=== PATIENT | female | born 1935 | race Caucasian/White ===

== ENCOUNTER 2017-05-19 18:06 | Inpatient (IN) | payer OTHER ==
[~2017-05-19] VITALS: Ht 177.8 cm; Wt 73.4 kg
[~2017-05-19 18:06] MED LIST: AMLO-147 PO; CLOP75TA27 PO; GABA300C16 PO; HYDR-906 PO; LANT3I SC; LISI10TA2 PO; METO-407 PO; MTF1000T PO; TRAM50TA2 PO
[2017-05-19 19:24] LABS: BASOPHILS % 0.2 % (0.0-2.0); EOSINOPHILS # 0.1 10^3/ul (0.0-0.5); EOSINOPHILS % 0.4 % (0.0-7.0); HEMATOCRIT 45.7 % (37.0-47.0); HEMOGLOBIN 15.1 g/dl (12.0-16.0); LYMPHOCYTES # 0.8 10^3/ul (0.8-2.9); LYMPHOCYTES % 5.9 % (15.0-51.0); MEAN CORPUSCULAR HEMOGLOBIN 27.8 pg (29.0-33.0); MEAN CORPUSCULAR VOLUME 84.2 fl (82.0-101.0); MEAN PLATELET VOLUME 10.8 fl (7.4-10.4); MONOCYTE # 0.8 10^3/ul (0.3-0.9); MONOCYTES % 5.4 % (0.0-11.0); NEUTROPHIL # 12.2 10^3/ul (1.6-7.5); NEUTROPHILS % 87.5 % (39.0-77.0); PLATELET COUNT 218 10^3/UL (140-415); RED BLOOD COUNT 5.43 10^6/ul (4.20-5.40); RED CELL DISTRIBUTION WIDTH 13.3 % (11.5-14.5)
[2017-05-19] MEDS ORDERED: SOD CHLORIDE 0.9% 1,000 ML IV ONE ×2 (19:30→21:30)
[2017-05-19 19:57] LABS: ALANINE AMINOTRANSFERASE 32 IU/L (13-69); ALBUMIN 4.1 g/dl (3.3-4.9); ALBUMIN/GLOBULIN RATIO 1.17; ALKALINE PHOSPHATASE 75 IU/L (42-121); ANION GAP 18 (8-16); ASPARTATE AMINO TRANSFERASE 20 IU/L (15-46); BILIRUBIN,INDIRECT 0.7 mg/dl (0-1.1); BILIRUBIN,TOTAL 0.7 mg/dl (0.2-1.3); BLOOD UREA NITROGEN 30 mg/dl (7-20); CALCIUM 9.8 mg/dl (8.4-10.2); CARBON DIOXIDE 24 mmol/L (21-31); CHLORIDE 104 mmol/L (97-110); CREATININE 0.76 mg/dl (0.44-1.00); GLUCOSE 235 mg/dl (70-220); POTASSIUM 3.6 mmol/L (3.5-5.1); SODIUM 142 mmol/L (135-144); TOTAL PROTEIN 7.6 g/dl (6.1-8.1)
[2017-05-19 20:11] LABS: TROPONIN-I < 0.012 ng/ml (0.00-0.12)
--- NOTE | 2017-05-19 20:29 | ERD ---
ER Documentation Chief Complaint Chief Complaint gen weakness for a few days. no neuro def, no fevers noted. no trauma HPI 82-year-old woman brought in by EMS from home for generalized weakness 2 days. She states she has not been eating or drinking much, she denies fevers or chills, no vomiting or diarrhea. Specifics are difficult to obtain, patient difficult historian. ROS All systems reviewed and are negative except as per history of present illness. Medications Home Meds Active Scripts Tramadol HCl (Tramadol HCl) 50 Mg Tablet, 50 MG PO Q6 Y for PAIN, #20 TAB Prov:ROSE MARY LINARES MD 04/28/16 Reported Medications Hydrocodone/Acetaminophen ([place] 5-325 Tablet) 1 Each Tablet, 1 EACH PO DAILY Y for PRN, TAB 05/06/16 Lisinopril* (Lisinopril*) 10 Mg Tablet, 10 MG PO BID, #30 TAB 05/06/16 Gabapentin* (Gabapentin*) 300 Mg Capsule, 300 MG PO QHS, #60 CAP 05/06/16 Insulin Glargine* (Lantus*) 100 Unit/Ml Soln, 20 UNIT SC QHS, #1 VIAL 05/06/16 Clopidogrel Bisulfate (Clopidogrel) 75 Mg Tablet, 75 MG PO DAILY, #30 TAB 04/28/16 Metformin* (Glucophage*) 1,000 Mg Tablet, 1000 MG PO DAILY, #30 TAB 04/28/16 Amlodipine Besylate* (Amlodipine Besylate*) 10 Mg Tablet, 10 MG PO DAILY, #30 TAB 04/28/16 Metoprolol Tartrate* (Lopressor*) 100 Mg Tablet, 100 MG PO BID, #60 TAB 04/28/16 Allergies Allergies: Coded Allergies: No Known Allergies (Unverified Allergy, Unknown, 05/06/16) PMhx/Soc Diabetes mellitus, hypertension, dyslipidemia, dementia, previous sections History of Surgery: No Anesthesia Reaction: No Hx Neurological Disorder: No Hx Respiratory Disorders: No Hx Cardiac Disorders: Yes (HTN ) Hx Psychiatric Problems: No Hx Miscellaneous Medical Probl: Yes (DM,UTI) Hx Alcohol Use: No Hx Substance Use: No Hx Tobacco Use: No Smoking Status: Never smoker FmHx Family History: No diabetes Physical Exam Vitals Vital Signs Date Time Temp Pulse Resp B/P Pulse Ox O2 Delivery O2 Flow Rate FiO2 05/19/17 18:13 98.1 70 16 165/73 98 Physical Exam GENERAL: Elderly woman, dehydrated, afebrile HEENT: Dry mucous membranes, pink conjunctiva, no cervical spine tenderness or step-off deformities, no goiter, no jaundice or icterus, extraocular movements intact without pain. No submandibular induration, and no pharyngeal erythema NEURO: Alert and oriented 2, pupils equal round reactive to light, able to answer simple questions follow simple commands, no focal deficits or facial asymmetry CARDIAC: Regular rate and rhythm, no murmurs rubs or gallops LUNGS: Clear bilaterally no wheezing crackles or stridor ABDOMEN: Soft nontender, no guarding, no rigidity, no rebound, no psoas sign no obturator sign. Normoactive bowel sounds SKIN: Warm and dry to touch, no abrasions, contusions, or hematomas, no lacerations, no ecchymosis, no target lesions, and without ulcers EXTREMITIES: No clubbing cyanosis or edema, calves are bilaterally symmetrical, no Homans sign, no popliteal cord sign. Distal pulses equal and bilateral PSYCH: Normal affect without agitation or irritability Result Diagram: 05/19/17182905/19/171829 Results 24 hrs Laboratory Tests Test 05/19/17 18:30 05/19/17 19:45 05/19/17 20:40 White Blood Count 14.010^3/ul Red Blood Count 5.4310^6/ul Hemoglobin 15.1g/dl Hematocrit 45.7% Mean Corpuscular Volume 84.2fl Mean Corpuscular Hemoglobin 27.8pg Mean Corpuscular Hemoglobin Concent 33.0g/dl Red Cell Distribution Width 13.3% Platelet Count 33420^3/UL Mean Platelet Volume 10.8fl Neutrophils % 87.5% Lymphocytes % 5.9% Monocytes % 5.4% Eosinophils % 0.4% Basophils % 0.2% Nucleated Red Blood Cells % 0.0/100WBC Neutrophils # 12.210^3/ul Lymphocytes # 0.810^3/ul Monocytes # 0.810^3/ul Eosinophils # 0.110^3/ul Basophils # 0.010^3/ul Nucleated Red Blood Cells # 0.010^3/ul Sodium Level 142mmol/L Potassium Level 3.6mmol/L Chloride Level 104mmol/L Carbon Dioxide Level 24mmol/L Anion Gap 18 Blood Urea Nitrogen 30mg/dl Creatinine 0.76mg/dl Glucose Level 235mg/dl Calcium Level 9.8mg/dl Total Bilirubin 0.7mg/dl Direct Bilirubin 0.00mg/dl Indirect Bilirubin 0.7mg/dl Aspartate Amino Transf (AST/SGOT) 20IU/L Alanine Aminotransferase (ALT/SGPT) 32IU/L Alkaline Phosphatase 75IU/L Troponin I < 0.012ng/ml Total Protein 7.6g/dl Albumin 4.1g/dl Globulin 3.50g/dl Albumin/Globulin Ratio 1.17 Lipase 143U/L Urine Color YELLOW Urine Clarity CLEAR Urine pH 5.0 Urine Specific [place] 1.019 Urine Ketones NEGATIVEmg/dL Urine Nitrite NEGATIVEmg/dL Urine Bilirubin NEGATIVEmg/dL Urine Urobilinogen NEGATIVEmg/dL Urine Leukocyte Esterase NEGATIVELeu/ul Urine Microscopic RBC 0/HPF Urine Microscopic WBC 1/HPF Urine Bacteria FEW/HPF Urine Mucus FEW/HPF Urine Hemoglobin NEGATIVEmg/dL Urine Glucose 2+mg/dL Urine Total Protein 1+mg/dl Bedside Urine pH (LAB) 5.5 Bedside Urine Protein (LAB) 2+ Bedside Urine Glucose (UA) 0.1% Bedside Urine Ketones (LAB) Negative Bedside Urine Blood Negative Bedside Urine Nitrite (LAB) Negative Bedside Urine Leukocyte Esterase (L Negative Current Medications Medications (Trade) Dose Ordered Sig/Kathy Route PRN Reason Start Time Stop Time Status Last Admin Dose Admin Sodium Chloride 1,000 ml @ 1,000 mls/hr Q1H ONCE IV 05/19/17 19:30 05/19/17 20:29 DC 05/19/17 19:37 Sodium Chloride (NS) 1,000 ml @ 1,000 mls/hr Q1H ONCE IV 05/19/17 21:30 05/19/17 22:29 Procedures/MDM IV line was established patient was placed on measurement advisor rhythm strip revealed a sinus rhythm at about 80 bpm with multiple PVCs. Patient was afebrile I administered 2 L normal saline intravenously for dehydration. EKG performed, read by me revealed a normal sinus rhythm at 85 bpm, normal axis , narrow QRS complex with evidence of left ventricular hypertrophy and multiple PVCs. No concerning ST elevations or depressions noted. CBC was unremarkable, electrolytes revealed dehydration, liver function tests normal, troponin negative, urinalysis negative for infection. Patient's mental status has improved but she continues to have PVCs on monitor which may be contributing to her weakness she will be admitted to telemetry setting, she may require cardiology consultation and echocardiogram. Departure Diagnosis: Primary Impression: Acute weakness Additional Impressions: Dehydration Failure to thrive Failure to thrive age range: in adult Qualified Code: R62.7 - Failure to thrive in adult Cardiac dysrhythmia Arrhythmia type: unspecified cardiac arrhythmia Qualified Code: I49.9 - Cardiac arrhythmia, unspecified cardiac arrhythmia type Condition: YARY Flores MD May 19, 2017 20:29
[2017-05-19 20:42] LABS: URINE BLOOD (Dip) POC Negative (NEGATIVE)
[2017-05-19 20:59] LABS: ADD UMIC YES; UR ASCORBIC ACID NEGATIVE (NEGATIVE); UR BACTERIA FEW /HPF (NONE SEEN); UR BILIRUBIN (Dip) NEGATIVE (NEGATIVE); UR BLOOD (Dip) NEGATIVE (NEGATIVE); UR CLARITY CLEAR (CLEAR); UR COLOR YELLOW (YELLOW); UR GLUCOSE (Dip) 2+ mg/dL (NEGATIVE); UR KETONES (Dip) NEGATIVE (NEGATIVE); UR LEUKOCYTE ESTERASE (Dip) NEGATIVE Leu/ul (NEGATIVE); UR MUCUS FEW /HPF (NONE SEEN); UR NITRITE (Dip) NEGATIVE (NEGATIVE); UR RBC 0 /HPF (0-5); UR SPECIFIC GRAVITY (Dip) 1.019 (1.003-1.030); UR TOTAL PROTEIN (Dip) 1+ mg/dl (NEGATIVE); UR UROBILINOGEN (Dip) NEGATIVE (NEGATIVE)
--- NOTE | 2017-05-19 22:02 | RADRPT ---
PROCEDURE: XR Chest. CLINICAL INDICATION: Shortness of breath. TECHNIQUE: Single frontal view. COMPARISON: 06/10/2014. FINDINGS: The lungs are clear. The heart is mildly enlarged. There is calcification in the aorta consistent with atherosclerosis. There is no pleural effusion or pneumothorax. There is an old nonunited fracture of the distal left clavicle. IMPRESSION: 1. Cardiomegaly and atherosclerosis. 2. 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 3. Otherwise unremarkable chest radiograph. RPTAT: QQ .Sergio Long MD, MD Date Time Electronically viewed and signed by .Sergio Long MD, MD on 05/19/2017 22:02 .R/
[2017-05-20] VITALS (23 sets, daily range): BP systolic 118–168; BP diastolic 43–113; PULSE 59–96; RESP 12–27; TEMP 99; Ht 177.8 cm; Wt 73.4 kg
[2017-05-20] MEDS ORDERED: GLUCOSE GEL 15 GRAM TUBE BUCCAL PRN (03:30)
[2017-05-20] MEDS ORDERED: DEXTROSE 50% 50 ML SYRINGE IV PRN ×2 (03:30)
[2017-05-20] MEDS ORDERED: GLUCAGON 1 MG INJ IM PRN (03:30)
[2017-05-20] MEDS ORDERED: GLUCOSE GEL 15 GRAM TUBE PO PRN ×2 (03:30)
[2017-05-20] MEDS ORDERED: INSULIN ASPART [NOVOLOG] 3 ML PEN SC SCH ×2 (05:00→07:35)
[2017-05-20] MEDS ORDERED: traMADol 50 MG TAB PO PRN (05:30)
[2017-05-20] MEDS ORDERED: ONDANSETRON 4 MG INJ IV PRN (05:30)
[2017-05-20 06:20] LABS: BASOPHILS % 0.3 % (0.0-2.0); EOSINOPHILS # 0.1 10^3/ul (0.0-0.5); EOSINOPHILS % 0.9 % (0.0-7.0); HEMATOCRIT 37.6 % (37.0-47.0); HEMOGLOBIN 12.4 g/dl (12.0-16.0); LYMPHOCYTES # 1.3 10^3/ul (0.8-2.9); LYMPHOCYTES % 13.1 % (15.0-51.0); MEAN CORPUSCULAR HEMOGLOBIN 27.6 pg (29.0-33.0); MEAN CORPUSCULAR VOLUME 83.6 fl (82.0-101.0); MONOCYTE # 0.8 10^3/ul (0.3-0.9); MONOCYTES % 7.6 % (0.0-11.0); NEUTROPHIL # 7.6 10^3/ul (1.6-7.5); NEUTROPHILS % 77.6 % (39.0-77.0); PLATELET COUNT 182 10^3/UL (140-415); RED CELL DISTRIBUTION WIDTH 13.5 % (11.5-14.5); WHITE BLOOD COUNT 9.8 10^3/ul (4.8-10.8)
[2017-05-20 06:53] LABS: ALANINE AMINOTRANSFERASE 33 IU/L (13-69); ALBUMIN 2.8 g/dl (3.3-4.9); ALBUMIN/GLOBULIN RATIO 0.96; ALKALINE PHOSPHATASE 53 IU/L (42-121); ANION GAP 11 (8-16); ASPARTATE AMINO TRANSFERASE 29 IU/L (15-46); BILIRUBIN,INDIRECT 0.7 mg/dl (0-1.1); BILIRUBIN,TOTAL 0.7 mg/dl (0.2-1.3); BLOOD UREA NITROGEN 18 mg/dl (7-20); CALCIUM 8.4 mg/dl (8.4-10.2); CARBON DIOXIDE 24 mmol/L (21-31); CHLORIDE 110 mmol/L (97-110); CHOL/HDL RATIO 2.6 RATIO; CHOLESTEROL 79 mg/dl (100-200); CREATININE 0.61 mg/dl (0.44-1.00); GLUCOSE 126 mg/dl (70-220); HDL CHOLESTEROL 30 mg/dl (33-92); SODIUM 142 mmol/L (135-144); TOTAL PROTEIN 5.7 g/dl (6.1-8.1); TRIGLYCERIDES 88 mg/dl (0-149)
[2017-05-20] MEDS ORDERED: PENDING SANTYL ORDER FOR WOUND CARE XX PRN (07:00)
--- NOTE | 2017-05-20 07:16 | HP ---
Date/Time of Note Date/Time of Note DATE: 05/20/17 TIME: 07:01 Assessment/Plan VTE Prophylaxis VTE Prophylaxis Intervention: SCD's Lines/Catheters IV [facility] Saline Lock Urinary Cath still in place: No Assessment/Plan Assessment/Plan 1. Status post-fall -According to her nurse, patient reported falling down in the bathtub about 2 weeks ago. She does have the bruising in her lower back, buttock and also blistering lesion on the right lower extremity. Due to patient's mental condition, additional information could not be obtained including questions about cardiac symptoms or syncope. Telemetry monitoring shows rate controlled A -fib in the 60s with frequent PVCs and also had aberrancy. -She will continue to be monitored on the telemetry unit -Trend troponin -Obtain carotid Doppler ultrasound -Physical therapy 2. A-fib, rate controlled -Continue Plavix and beta-kandace. No anticoagulation given fall risk 3. Generalized weakness -Physical therapy evaluation 4. Dementia -Continue supportive care 5. Likely history of CAD -Continue home medications including Plavix and beta-kandace 6. Hypertension -Continue antihypertensives adjustment as needed 7. Insulin-dependent Diabetes -Hold metformin. Continue insulin 8. Right lower extremity blistering lesion/cellulitis -Unknown etiology of the blistering lesion, but could be from some type of accidental burn. He does not appear to be from trauma from fall -Wound care consult -Antibiotic HPI/ROS Admit Date/Time Admit Date/Time May 19, 2017 at 21:12 Hx of Present Illness This is an 82-year-old female with a history of hypertension, dyslipidemia, A. fib, probable CAD, dementia who presented to the ER for what ER notes says generalized weakness. Patient appears to have dementia and is a slow when answering questions. On my questioning, she knew that she is in the hospital, but she said "I can not tell you are why I'm here". She seem to have difficulty remembering things. She thought the year was 1987 and did not know who the current [place] president is. According to her nurse however, she told him that she fell down in the past about 2 weeks ago. She does have bruising in her lower back, buttock and that there is a blistering lesion on the right lower extremity. On physical examination, she does have 5 out of 5 strength in both upper and lower extremities with good handgrip. When she came to the ER, initial blood pressure was 165/73. Labs shows a WBC of 14,000 and a glucose of 235. Chest x-ray showed cardiomegaly and old left clavicular fracture. Patient is admitted to ICU as telemetry overflow. On the monitor, it shows that she is in A-fib, rate controlled in the 60s with frequent PVCs and also had aberrancy. PMH/Family/Social Social History Smoking Status: Former smoker Exam/Review of Systems Vital Signs Vitals Vital Signs Date Time Temp Pulse Resp B/P Pulse Ox O2 Delivery O2 Flow Rate FiO2 05/20/17 06:00 79 21 162/87 97 Room Air 05/20/17 05:00 98.1 Intake and Output 05/19/17 05/19/17 05/20/17 14:59 22:59 06:59 Intake Total 2000 ml Balance 2000 ml Exam Exam Constitutional: alert, oriented, well developed Head: atraumatic, normocephalic Eyes: EOMI, PERRL Respiratory: clear to auscultation, normal air movement Cardiovascular: nl pulses, regular rate and rhythm Gastrointestinal: non-tender, soft Extremities: other (Left hip tenderness) Labs Result Diagram: 05/20/17 0547 05/19/17 1830 Medications Medications Current Medications Diagnostic Test (Pha) (Accu-Chek) 1 ea 02 XX ; Start 05/21/17 at 02:00 Diagnostic Test (Pha) (Accu-Chek) 1 ea 02 XX ; Start 05/21/17 at 02:00 Miscellaneous Information 1 ea NOTE XX ; Start 05/20/17 at 03:30 Glucose (Glutose) 15 gm Q15M PRN PO DECREASED GLUCOSE; Start 05/20/17 at 03:30 Glucose (Glutose) 22.5 gm Q15M PRN PO DECREASED GLUCOSE; Start 05/20/17 at 03: 30 Dextrose (D50w Syringe) 25 ml Q15M PRN IV DECREASED GLUCOSE; Start 05/20/17 at 03:30 Dextrose (D50w Syringe) 50 ml Q15M PRN IV DECREASED GLUCOSE; Start 05/20/17 at 03:30 Glucagon (Glucagen) 1 mg Q15M PRN IM DECREASED GLUCOSE; Start 05/20/17 at 03: 30 Glucose (Glutose) 15 gm Q15M PRN BUCCAL DECREASED GLUCOSE; Start 05/20/17 at 03:30 Ondansetron HCl (Zofran Inj) 4 mg Q6H PRN IV NAUSEA AND/OR VOMITING; Start 06/24 at 05:30 Amlodipine Besylate (Norvasc) 10 mg DAILY PO ; Start 05/20/17 at 09:00 Clopidogrel Bisulfate (plaVIX) 75 mg DAILY PO ; Start 05/20/17 at 09:00 Gabapentin (Neurontin) 300 mg QHS PO ; Start 05/20/17 at 21:00 Acetaminophen/ Hydrocodone Bitart ([place] (5/325)) 1 tab Q6 PRN PO pain; Start 05/20/17 at 05:30 Insulin Glargine (Lantus) 20 unit QHS SC ; Start 05/20/17 at 21:00 Lisinopril (Zestril) 10 mg BID PO ; Start 05/20/17 at 09:00 Metoprolol Tartrate (Lopressor) 100 mg BID PO ; Start 05/20/17 at 09:00 Tramadol HCl (Ultram) 50 mg Q6 PRN PO PAIN; Start 05/20/17 at 05:30 Miscellaneous Information (Pending [facility] Order For Wound Care) This patient espinosa... PRN PRN XX WOUND CARE; Start 05/20/17 at 07:00; Status KARLY CAICEDO MD May 20, 2017 07:13
[2017-05-20] MEDS: INSULIN ASPART [NOVOLOG] 3 ML PEN SC SCH ×7 (09:31→23:50)
[2017-05-20] MEDS: AMLODIPINE 10 MG TAB PO SCH (09:35)
[2017-05-20] MEDS: ACCU-CHEK XX SCH ×3 (09:35→18:51)
[2017-05-20] MEDS: CLOPIDOGREL 75 MG TAB PO SCH (09:35)
[2017-05-20] MEDS: METOPROLOL 100 MG TAB PO SCH ×2 (09:36→20:14)
[2017-05-20] MEDS: LISINOPRIL 10 MG TAB PO SCH ×2 (09:36→20:14)
[2017-05-20 09:50] LABS: FOLATE > 20.0 ng/ml (2.8-20.0)
[2017-05-20] MEDS ORDERED: POTASSIUM CHLORIDE 250 ML IVPB ONE (17:00)
[2017-05-20] MEDS ORDERED: hydrALAzine 20 MG INJ IV PRN (17:30)
[2017-05-20] MEDS: GABAPENTIN 300 MG CAP PO SCH (20:14)
[2017-05-21] VITALS (12 sets, daily range): BP systolic 140–172; BP diastolic 61–81; PULSE 49–79; RESP 17–20
[2017-05-21] MEDS: INSULIN GLARGINE [LANtus] 3 ML PEN SC SCH ×2 (00:01→21:57)
[2017-05-21] MEDS: ACCU-CHEK XX SCH ×4 (00:22→20:05)
[2017-05-21] MEDS ORDERED: ACCU-CHEK XX SCH (02:00)
[2017-05-21 07:42] LABS: BASOPHILS % 0.1 % (0.0-2.0); HEMATOCRIT 40.2 % (37.0-47.0); HEMOGLOBIN 13.2 g/dl (12.0-16.0); LYMPHOCYTES # 0.9 10^3/ul (0.8-2.9); LYMPHOCYTES % 6.5 % (15.0-51.0); MEAN CORPUSCULAR HEMOGLOBIN 27.7 pg (29.0-33.0); MEAN CORPUSCULAR HGB CONC 32.8 g/dl (32.0-37.0); MEAN CORPUSCULAR VOLUME 84.3 fl (82.0-101.0); MEAN PLATELET VOLUME 11.1 fl (7.4-10.4); MONOCYTE # 1.1 10^3/ul (0.3-0.9); MONOCYTES % 7.4 % (0.0-11.0); NEUTROPHIL # 12.2 10^3/ul (1.6-7.5); NEUTROPHILS % 85.4 % (39.0-77.0); PLATELET COUNT 174 10^3/UL (140-415); RED BLOOD COUNT 4.77 10^6/ul (4.20-5.40); RED CELL DISTRIBUTION WIDTH 13.4 % (11.5-14.5); WHITE BLOOD COUNT 14.2 10^3/ul (4.8-10.8)
[2017-05-21] MEDS: INSULIN ASPART [NOVOLOG] 3 ML PEN SC SCH ×7 (07:55→21:57)
[2017-05-21 08:04] LABS: CALCIUM 8.5 mg/dl (8.4-10.2); CREATININE 0.99 mg/dl (0.44-1.00); MAGNESIUM 1.3 mg/dl (1.7-2.5); POTASSIUM 3.5 mmol/L (3.5-5.1)
[2017-05-21] MEDS: METOPROLOL 100 MG TAB PO SCH (09:02)
[2017-05-21] MEDS: AMLODIPINE 10 MG TAB PO SCH (09:03)
[2017-05-21] MEDS: LISINOPRIL 10 MG TAB PO SCH ×2 (09:03→20:44)
[2017-05-21] MEDS: CLOPIDOGREL 75 MG TAB PO SCH (09:03)
[2017-05-21] MEDS ORDERED: MAGNESIUM SULFATE 2 GM/50 ML 50 ML IVPB ONE (12:30)
--- NOTE | 2017-05-21 16:28 | PN ---
Date/Time of Note Date/Time of Note DATE: 05/21/17 TIME: 16:27 Assessment/Plan VTE Prophylaxis VTE Prophylaxis Intervention: other Lines/Catheters IV Catheter Type (from Nrs): Saline Lock Urinary Cath still in place: No Assessment/Plan Chief Complaint/Hosp Course 82 yo female with permanent A Fib with cognitive impairment admitted after a fall, with deconditioning, pending SNF placement p A Fib: - Decrease metorpolol to 50 BID from 100 BID Continue PT/OT Discharge to SNF, ready to go Problems: Subjective 24 Hr Interval Summary Free Text/Dictation Mild bradycardia noted, metoprolol dose decreased Workign with PT Plan for transfer to SNF given immobility Exam/Review of Systems Vital Signs Vitals Vital Signs Date Time Temp Pulse Resp B/P Pulse Ox O2 Delivery O2 Flow Rate FiO2 05/21/17 15:57 98.9 62 17 156/70 97 05/21/17 09:25 2.0 05/20/17 20:00 Room Air Intake and Output 05/20/17 05/20/17 05/21/17 15:00 23:00 07:00 Intake Total 340 ml 310.0 ml Balance 340 ml 310.0 ml Exam Constitutional: alert, oriented, well developed Psych: nl mood/affect, no complaints Head: atraumatic, normocephalic Eyes: EOMI, PERRL, nl conjunctiva, nl lids, nl sclera ENMT: nl external ears & nose, nl lips & teeth, nl nasal mucosa & septum Neck: non-tender, supple Respiratory: clear to auscultation, normal air movement Cardiovascular: nl pulses, regular rate and rhythm Gastrointestinal: nl liver, spleen, non-tender, soft Musculoskeletal: nl extremities to inspection, nl gait and stance Extremities: normal pulses Neurological: RN FACULTY II-XII intact, nl mental status, nl speech, nl strength Skin: nl turgor, No rash or lesions Lymph: nl lymph nodes Results Result Diagram: 05/21/17 0705 05/21/17 0705 Results 24 hrs Laboratory Tests Test 05/20/17 16:57 05/20/17 20:21 05/20/17 23:54 05/21/17 07:05 Bedside Glucose 143 141 169 White Blood Count 14.2 #H Red Blood Count 4.77 Hemoglobin 13.2 Hematocrit 40.2 Mean Corpuscular Volume 84.3 Mean Corpuscular Hemoglobin 27.7 L Mean Corpuscular Hemoglobin Concent 32.8 Red Cell Distribution Width 13.4 Platelet Count 174 Mean Platelet Volume 11.1 H Neutrophils % 85.4 H Lymphocytes % 6.5 L Monocytes % 7.4 Eosinophils % 0.0 Basophils % 0.1 Nucleated Red Blood Cells % 0.0 Neutrophils # 12.2 H Lymphocytes # 0.9 Monocytes # 1.1 H Eosinophils # 0.0 Basophils # 0.0 Nucleated Red Blood Cells # 0.0 Sodium Level 139 Potassium Level 3.5 Chloride Level 105 Carbon Dioxide Level 24 Anion Gap 14 Blood Urea Nitrogen 21 H Creatinine 0.99 Glucose Level 105 Calcium Level 8.5 Magnesium Level 1.3 L Test 05/21/17 08:03 05/21/17 11:54 Bedside Glucose 115 291 H Medications Medications Current Medications Diagnostic Test (Pha) (Accu-Chek) 1 ea 02 XX ; Start 05/21/17 at 02:00 Miscellaneous Information 1 ea NOTE XX ; Start 05/20/17 at 03:30 Glucose (Glutose) 15 gm Q15M PRN PO DECREASED GLUCOSE; Start 05/20/17 at 03:30 Glucose (Glutose) 22.5 gm Q15M PRN PO DECREASED GLUCOSE; Start 05/20/17 at 03: 30 Dextrose (D50w Syringe) 25 ml Q15M PRN IV DECREASED GLUCOSE; Start 05/20/17 at 03:30 Dextrose (D50w Syringe) 50 ml Q15M PRN IV DECREASED GLUCOSE; Start 05/20/17 at 03:30 Glucagon (Glucagen) 1 mg Q15M PRN IM DECREASED GLUCOSE; Start 05/20/17 at 03: 30 Glucose (Glutose) 15 gm Q15M PRN BUCCAL DECREASED GLUCOSE; Start 05/20/17 at 03:30 Ondansetron HCl (Zofran Inj) 4 mg Q6H PRN IV NAUSEA AND/OR VOMITING Last administered on 05/20/17 14:53; Admin Dose 4 MG; Start 05/20/17 at 05:30 Amlodipine Besylate (Norvasc) 10 mg DAILY PO Last administered on 05/21/17 09 :03; Admin Dose 10 MG; Start 05/20/17 at 09:00 Clopidogrel Bisulfate (plaVIX) 75 mg DAILY PO Last administered on 05/21/17 09:03; Admin Dose 75 MG; Start 05/20/17 at 09:00 Gabapentin (Neurontin) 300 mg QHS PO Last administered on 05/20/17 20:14; Admin Dose 300 MG; Start 05/20/17 at 21:00 Acetaminophen/ Hydrocodone Bitart ([place] (5/325)) 1 tab Q6 PRN PO pain; Start 05/20/17 at 05:30 Insulin Glargine (Lantus) 20 unit QHS SC Last administered on 05/21/17 00:01 ; Admin Dose 20 UNIT; Start 05/20/17 at 21:00 Lisinopril (Zestril) 10 mg BID PO Last administered on 05/21/17 09:03; Admin Dose 10 MG; Start 05/20/17 at 09:00 Tramadol HCl (Ultram) 50 mg Q6 PRN PO PAIN; Start 05/20/17 at 05:30 Miscellaneous Information (Pending [facility] Order For Wound Care) This patient espinosa... PRN PRN XX WOUND CARE; Start 05/20/17 at 07:00 Hydralazine HCl (Apresoline) 10 mg Q4H PRN IV SBP>170; Start 05/20/17 at 17:30 Metoprolol Tartrate (Lopressor) 50 mg BID PO ; Start 05/21/17 at 21:00; Status ABY JI MD May 21, 2017 16:28
[2017-05-21] MEDS: METOPROLOL 50 MG TAB PO SCH (20:45)
[2017-05-21] MEDS: GABAPENTIN 300 MG CAP PO SCH (20:45)
[2017-05-22] MEDS: ACCU-CHEK XX SCH ×4 (02:00→20:39)
[2017-05-22 02:21] VITALS: BP 151/67; RESP 18
[2017-05-22 07:57] VITALS: BP 131/71; RESP 20
[2017-05-22] MEDS: INSULIN ASPART [NOVOLOG] 3 ML PEN SC SCH ×7 (08:00→20:41)
[2017-05-22] MEDS: CLOPIDOGREL 75 MG TAB PO SCH (08:30)
[2017-05-22] MEDS: METOPROLOL 50 MG TAB PO SCH ×2 (08:31→20:42)
[2017-05-22] MEDS: AMLODIPINE 10 MG TAB PO SCH (08:31)
[2017-05-22] MEDS: LISINOPRIL 10 MG TAB PO SCH ×2 (08:31→20:42)
[2017-05-22] MEDS: SILVER SULFADIAZINE 1% 25 GM CR TOP SCH (11:15)
[2017-05-22] MEDS: HYDROCODONE/APAP (5/325) TAB PO PRN (12:08)
[2017-05-22 14:00] VITALS: BP 135/69; RESP 18
[2017-05-22] MEDS: POLYETHYLENE GLYCOL 17 GM PACKET PO SCH (14:40)
--- NOTE | 2017-05-22 18:25 | PN ---
Date/Time of Note Date/Time of Note DATE: 05/22/17 TIME: 18:24 Assessment/Plan VTE Prophylaxis VTE Prophylaxis Intervention: LMWH Lines/Catheters IV Catheter Type (from Nrs): Saline Lock Urinary Cath still in place: No Assessment/Plan Chief Complaint/Hosp Course 82 yo female with permanent A Fib with cognitive impairment admitted after a fall, with deconditioning, pending SNF placement p A Fib: - Continue metorpolol to 50 BID from 100 BID, less bradycardia today Continue PT/OT Discharge to SNF, ready to go Problems: Subjective 24 Hr Interval Summary Free Text/Dictation No change to clinical status Awiating transfer to SNF Exam/Review of Systems Vital Signs Vitals Vital Signs Date Time Temp Pulse Resp B/P Pulse Ox O2 Delivery O2 Flow Rate FiO2 05/22/17 14:00 98.0 68 18 135/69 96 05/21/17 17:10 2.0 05/20/17 20:00 Room Air Intake and Output 05/21/17 05/21/17 05/22/17 15:00 23:00 07:00 Intake Total 120 ml 600 ml Balance 120 ml 600 ml Exam Constitutional: alert, oriented, well developed Psych: nl mood/affect, no complaints Head: atraumatic, normocephalic Eyes: EOMI, PERRL, nl conjunctiva, nl lids, nl sclera ENMT: nl external ears & nose, nl lips & teeth, nl nasal mucosa & septum Neck: non-tender, supple Respiratory: clear to auscultation, normal air movement Cardiovascular: nl pulses, regular rate and rhythm Gastrointestinal: nl liver, spleen, non-tender, soft Musculoskeletal: nl extremities to inspection, nl gait and stance Extremities: normal pulses Neurological: STATION DETECTIVE II-XII intact, nl mental status, nl speech, nl strength Skin: nl turgor, No rash or lesions Lymph: nl lymph nodes Results Result Diagram: 05/21/17 0705 05/21/17 0705 Results 24 hrs Laboratory Tests Test 05/21/17 20:38 05/21/17 21:48 05/22/17 02:07 05/22/17 08:17 Bedside Glucose 237 H 196 150 134 Test 05/22/17 10:15 05/22/17 12:00 05/22/17 13:57 05/22/17 17:16 Bedside Glucose 275 H 274 H 276 H 174 Medications Medications Current Medications Diagnostic Test (Pha) (Accu-Chek) 1 ea 02 XX ; Start 05/21/17 at 02:00 Miscellaneous Information 1 ea NOTE XX ; Start 05/20/17 at 03:30 Glucose (Glutose) 15 gm Q15M PRN PO DECREASED GLUCOSE; Start 05/20/17 at 03:30 Glucose (Glutose) 22.5 gm Q15M PRN PO DECREASED GLUCOSE; Start 05/20/17 at 03: 30 Dextrose (D50w Syringe) 25 ml Q15M PRN IV DECREASED GLUCOSE; Start 05/20/17 at 03:30 Dextrose (D50w Syringe) 50 ml Q15M PRN IV DECREASED GLUCOSE; Start 05/20/17 at 03:30 Glucagon (Glucagen) 1 mg Q15M PRN IM DECREASED GLUCOSE; Start 05/20/17 at 03: 30 Glucose (Glutose) 15 gm Q15M PRN BUCCAL DECREASED GLUCOSE; Start 05/20/17 at 03:30 Ondansetron HCl (Zofran Inj) 4 mg Q6H PRN IV NAUSEA AND/OR VOMITING Last administered on 05/20/17 14:53; Admin Dose 4 MG; Start 05/20/17 at 05:30 Amlodipine Besylate (Norvasc) 10 mg DAILY PO Last administered on 05/22/17 08 :31; Admin Dose 10 MG; Start 05/20/17 at 09:00 Clopidogrel Bisulfate (plaVIX) 75 mg DAILY PO Last administered on 05/22/17 08:30; Admin Dose 75 MG; Start 05/20/17 at 09:00 Gabapentin (Neurontin) 300 mg QHS PO Last administered on 05/21/17 20:45; Admin Dose 300 MG; Start 05/20/17 at 21:00 Acetaminophen/ Hydrocodone Bitart ([place] (5/325)) 1 tab Q6 PRN PO pain Last administered on 05/22/17 12:08; Admin Dose 1 TAB; Start 05/20/17 at 05:30 Insulin Glargine (Lantus) 20 unit QHS SC Last administered on 05/21/17 21:57 ; Admin Dose 20 UNIT; Start 05/20/17 at 21:00 Lisinopril (Zestril) 10 mg BID PO Last administered on 05/22/17 08:31; Admin Dose 10 MG; Start 05/20/17 at 09:00 Tramadol HCl (Ultram) 50 mg Q6 PRN PO PAIN; Start 05/20/17 at 05:30 [facility] This patient espinosa... PRN PRN XX WOUND CARE; Start 05/20/17 at 07:00 Hydralazine HCl (Apresoline) 10 mg Q4H PRN IV SBP>170; Start 05/20/17 at 17:30 Metoprolol Tartrate (Lopressor) 50 mg BID PO Last administered on 05/22/17 08 :31; Admin Dose 50 MG; Start 05/21/17 at 21:00 Silver Sulfadiazine (Thermazene 1% 25 Gm) 1 applic DAILY TOP Last administered on 05/22/17 11:15; Admin Dose 1 APPLIC; Start 05/22/17 at 10:00 Polyethylene Glycol (Miralax) 17 gm DAILY PO Last administered on 05/22/17 14 :40; Admin Dose 17 GM; Start 05/22/17 at 14:30 ABY PARADA MD May 22, 2017 18:25
[2017-05-22 20:09] VITALS: BP 125/58; RESP 16
[2017-05-22] MEDS: INSULIN GLARGINE [LANtus] 3 ML PEN SC SCH (20:41)
[2017-05-22] MEDS: GABAPENTIN 300 MG CAP PO SCH (20:42)
[2017-05-23] MEDS: ACCU-CHEK XX SCH ×3 (01:31→14:00)
[2017-05-23] MEDS: HYDROCODONE/APAP (5/325) TAB PO PRN (01:33)
[2017-05-23 02:29] VITALS: BP 118/58; RESP 16
[2017-05-23 08:00] VITALS: BP 126/60; RESP 18; RESP 73
[2017-05-23] MEDS: INSULIN ASPART [NOVOLOG] 3 ML PEN SC SCH ×4 (08:38→12:21)
[2017-05-23] MEDS: POLYETHYLENE GLYCOL 17 GM PACKET PO SCH (08:39)
[2017-05-23] MEDS: CLOPIDOGREL 75 MG TAB PO SCH (08:41)
[2017-05-23] MEDS: AMLODIPINE 10 MG TAB PO SCH (08:45)
[2017-05-23] MEDS: METOPROLOL 50 MG TAB PO SCH (08:45)
[2017-05-23] MEDS: SILVER SULFADIAZINE 1% 25 GM CR TOP SCH (08:46)
[2017-05-23] MEDS: LISINOPRIL 10 MG TAB PO SCH (08:46)
[2017-05-23] MEDS ORDERED: METO-407 PO (13:52)
[2017-05-23 14:00] VITALS: BP 120/72; RESP 18
--- NOTE | 2017-05-23 14:00 | DS ---
Date/Time of Note Date/Time of Note DATE: 05/23/17 TIME: 13:55 Discharge Summary Admission/Discharge Info Admit Date/Time May 19, 2017 at 21:12 Discharge Date/Time Discharge Diagnosis Gait instability Patient Condition: Good Hx of Present Illness This is an 82-year-old female with a history of hypertension, dyslipidemia, A. fib, probable CAD, dementia who presented to the ER for what ER notes says generalized weakness. Patient appears to have dementia and is a slow when answering questions. On my questioning, she knew that she is in the hospital, but she said "I can not tell you are why I'm here". She seem to have difficulty remembering things. She thought the year was 1987 and did not know who the current [place] president is. According to her nurse however, she told him that she fell down in the past about 2 weeks ago. She does have bruising in her lower back, buttock and that there is a blistering lesion on the right lower extremity. On physical examination, she does have 5 out of 5 strength in both upper and lower extremities with good handgrip. When she came to the ER, initial blood pressure was 165/73. Labs shows a WBC of 14,000 and a glucose of 235. Chest x-ray showed cardiomegaly and old left clavicular fracture. Patient is admitted to ICU as telemetry overflow. On the monitor, it shows that she is in A-fib, rate controlled in the 60s with frequent PVCs and also had aberrancy. Hospital Course 82 yo female with permanent A Fib with cognitive impairment admitted after a fall, with deconditioning, pending SNF placement p A Fib: - Continue metorpolol to 50 BID from 100 BID, less bradycardia today Continue PT/OT Discharge to SNF, ready to go Home Meds Active Scripts Tramadol HCl (Tramadol HCl) 50 Mg Tablet, 50 MG PO Q6 Y for PAIN, #20 TAB Prov:ROSE MARY LINARES MD 04/28/16 Reported Medications Hydrocodone/Acetaminophen ([place] 5-325 Tablet) 1 Each Tablet, 1 EACH PO DAILY Y for PRN, TAB 05/06/16 Lisinopril* (Lisinopril*) 10 Mg Tablet, 10 MG PO BID, #30 TAB 05/06/16 Gabapentin* (Gabapentin*) 300 Mg Capsule, 300 MG PO QHS, #60 CAP 05/06/16 Insulin Glargine* (Lantus*) 100 Unit/Ml Soln, 20 UNIT SC QHS, #1 VIAL 05/06/16 Clopidogrel Bisulfate (Clopidogrel) 75 Mg Tablet, 75 MG PO DAILY, #30 TAB 04/28/16 Metformin* (Glucophage*) 1,000 Mg Tablet, 1000 MG PO DAILY, #30 TAB 04/28/16 Amlodipine Besylate* (Amlodipine Besylate*) 10 Mg Tablet, 10 MG PO DAILY, #30 TAB 04/28/16 Metoprolol Tartrate* (Lopressor*) 100 Mg Tablet, 100 MG PO BID, #60 TAB 04/28/16 Primary Care Provider Jany Arteaga Pending Labs Laboratory Tests Test 05/22/17 13:57 05/22/17 17:16 05/22/17 20:37 05/23/17 01:30 Bedside Glucose 276mg/dL (70-220) 174mg/dL (70-220) 264mg/dL (70-220) 174mg/dL (70-220) Test 05/23/17 07:49 05/23/17 10:09 05/23/17 12:06 Bedside Glucose 194mg/dL (70-220) 319mg/dL (70-220) 249mg/dL (70-220) ABY PARADA MD May 23, 2017 14:00
== END 2017-05-23 15:55 | DRG 309 ==
LOC: E/R 18:06 → ICU 21:12 → TEL 05-20 20:47 → PP2 05-21 16:34
PROVIDERS: ADMIT Internal Medicine; ATTEND Internal Medicine
DX: I48.91 Unspecified atrial fibrillation (principal); L03.115 Cellulitis of right lower limb; F03.90 Unspecified dementia, unspecified severity, without behavioral disturbance, psychotic disturbance, mood disturbance, and anxiety; E11.9 Type 2 diabetes mellitus without complications; R53.1 Weakness; I49.3 Ventricular premature depolarization; I25.10 Atherosclerotic heart disease of native coronary artery without angina pectoris; I10 Essential (primary) hypertension; S80.821A Blister (nonthermal), right lower leg, initial encounter; E86.0 Dehydration; Z91.81 History of falling
CPT/HCPCS: 36415; 71010; 80048; 80053; 80061; 81001; 81003; 82607; 82746; 82962; 83036; 83690; 83735; 84443; 84484; 85025; 87081; 87086; 92610; 93005; 97161; J1815; J2405; J3475; J7030; P9612